=== PATIENT | female | born 1945 | race Caucasian/White ===

== ENCOUNTER → 2023-12-19 11:00 | Outpatient (REF) | payer MEDICARE, SELFPAY ==
[2023-12-19 11:39] LABS: % Basophils 0.5 % (0-2); % Eosinophils 1.9 % (0-6); % Immature Granulocytes 0.5 % (0-0.5); % Lymphocytes 38.6 % (20.5-51.1); % Monocytes 7.7 % (1.7-9.3); % Neutrophils 50.8 % (42.2-75.2); Absolute Eosinophils 0.1 10^3/uL (0-0.7); Absolute Lymphocytes 1.6 10^3/uL (1.2-3.4); Absolute Monocytes 0.3 10^3/uL (0.1-0.6); Absolute Neutrophils 2.1 10^3/uL (1.4-6.5); Hematocrit 40.2 % (37.0-47.0); Hemoglobin 13.5 g/dL (12.0-16.0); Mean Corp Hgb Conc. 33.6 g/dL (33.0-37.0); Mean Corpuscular Hgb 32.5 pg (27.0-31.0); Mean Corpuscular Volume 96.9 fL (81.0-99.0); Mean Platelet Volume 9.4 fL (7.4-10.4); Nucleated Red Blood Cells % 0 %; Platelet Count 200 10^3/uL (130-400); Red Blood Cell Count 4.15 10^6/uL (4.20-5.40); Red Cell Dist. Width 12.5 % (11.5-14.5); White Blood Cell Count 4.2 10^3/uL (4.8-10.8)
[2023-12-19 12:52] LABS: ALT (SGPT) 30 U/L (0-35); AST (SGOT) 34 U/L (14-36); Albumin 4.5 g/dl (3.5-5.0); Alkaline Phosphatase 91 U/L (38-126); Blood Urea Nitrogen 18 mg/dl (7-17); Carbon Dioxide 27 mmol/L (22-30); Chloride 105 mmol/L (98-107); Glucose 91 mg/dl (70-99); HDL Cholesterol 66 mg/dl; LDL Cholesterol, Calculated 84 mg/dl; Potassium 4.5 mmol/L (3.5-5.1); Sodium 141 mmol/L (135-145); Total Bilirubin 0.6 mg/dl (0.2-1.3); Total Cholesterol 178 mg/dl (50-199); Triglyceride 141 mg/dl (10-149); Very Low Density Lipoprotein 28 mg/dl (0-30); eGFR > 60.00
[2023-12-19 13:23] LABS: TSH 1.75 uIU/ml (0.47-4.68)
== END ==
LOC: REG 11:00
PROVIDERS: ATTENDING PHYSICIAN Family Medicine
DX: H00.015 Hordeolum externum left lower eyelid (principal); K21.9 Gastro-esophageal reflux disease without esophagitis; E78.00 Pure hypercholesterolemia, unspecified; G60.8 Other hereditary and idiopathic neuropathies; R03.0 Elevated blood-pressure reading, without diagnosis of hypertension
CPT/HCPCS: 36415; 80053; 80061; 84443; 85025

== ENCOUNTER → 2024-01-31 09:00 | Outpatient (REF) | payer MEDICARE, SELFPAY | LOC: DHSLP 09:00 | PROVIDERS: ATTENDING PHYSICIAN Family Medicine | DX: G47.33 Obstructive sleep apnea (adult) (pediatric) (principal) | CPT/HCPCS: 95800 ==

== ENCOUNTER → 2024-07-31 11:49 | Outpatient (REF) | payer MEDICARE, SELFPAY | LOC: RAD 11:49 | PROVIDERS: ATTENDING PHYSICIAN Family Medicine | DX: M54.10 Radiculopathy, site unspecified (principal) | CPT/HCPCS: 72110; 72220 ==

== ENCOUNTER 2024-09-16 06:18 | Day surgery (SDC) | payer MEDICARE, SELFPAY | END 2024-09-16 09:52 | disposition home or self-care (01) | LOC: GI 06:18 | PROVIDERS: ATTENDING PHYSICIAN Surgery; FAMILY PHYSICIAN Family Medicine | DX: Z12.11 Encounter for screening for malignant neoplasm of colon (principal); R19.5 Other fecal abnormalities; K57.30 Diverticulosis of large intestine without perforation or abscess without bleeding; K64.9 Unspecified hemorrhoids; D12.0 Benign neoplasm of cecum; K63.5 Polyp of colon; D12.2 Benign neoplasm of ascending colon; Z83.719 Family history of colon polyps, unspecified | CPT/HCPCS: 45380; 88305 ==

== ENCOUNTER 2024-11-05 06:09 | Day surgery (SDC) | payer MEDICARE, SELFPAY ==
[2024-11-05 09:16] VITALS: BMI 26.6
[2024-11-05 09:25] VITALS: BP 143/86
[2024-11-05 09:31] VITALS: BMI 26.6
[2024-11-05 12:42] VITALS: BP 108/63
[2024-11-05 12:45] VITALS: BP 98/61
[2024-11-05 13:00] VITALS: BP 136/94
[2024-11-05 13:08] VITALS: BP 136/79
== END 2024-11-05 13:15 | disposition home or self-care (01) ==
LOC: GI 06:09
PROVIDERS: ATTENDING PHYSICIAN Internal Medicine Gastroenterology
DX: K64.0 First degree hemorrhoids (principal); K64.4 Residual hemorrhoidal skin tags; D12.0 Benign neoplasm of cecum; D12.2 Benign neoplasm of ascending colon; D12.3 Benign neoplasm of transverse colon
CPT/HCPCS: 45390; 45385; 88305

== ENCOUNTER 2025-01-13 09:01 | Emergency (ER) | payer MEDICARE, SELFPAY ==
[2025-01-13] VITALS (11 sets, daily range): BP systolic 114–149; BP diastolic 57–90; BMI 28.6
--- NOTE | 2025-01-13 10:00 | ED.GENMED ---
History of Present Illness
General
Chief Complaint: Chest Pain
Source: patient
Exam Limitations: none
Time Seen by Provider: 01/13/25 09:51
Nursing documentation reviewed up to this point in time: agreed with
History of Present Illness
History of Present Illness:
Patient presents to ED secondary to intermittent chest pain since yesterday, which has become persistent since early this morning around 3 AM, when she woke up from sleep. Chest pain described as dull, achy, nonradiating, without any alleviating or
exacerbating factors. Denies direct trauma. Denies recent illness. Denies back pain. Denies leg pain or swelling. Denies recent medication or diet changes. However, patient does report [place]. There is a family
history of heart disease. There is no family history of blood clots. Patient states that her sharp pain is reminiscent of 2009, when she was diagnosed with breast cancer, which currently is in remission. Patient is currently being followed at [facility].
Past History
Past History
ED Past Medical History: Cancer (Breast CA), Hypercholesterolemia and Other (Ambulatory dysfunction, Migraines, )
ED Past Surgical History: Cholecystectomy, Orthopedic (Torn meniscus with repair, Right total knee replacement) and Other (Lumpectomy left breast, Jose cataracts)
Social History
Tobacco: Non-smoker
Alcohol: None
Drug: None
Personal:
Living: alone
Review of Systems
Review of Systems
Allergies reviewed?: Yes
All Other Systems: ROS reviewed and negative except as documented in HPI and ROS
Constitutional: Reports no symptoms
Respiratory: Denies trouble breathing
Cardiac: Reports chest pain
ABD/GI: Reports no symptoms
Musculoskeletal: Reports no symptoms
Skin: Reports no symptoms
Neurological: Reports no symptoms
Phy Exam
Physical Exam
Physical Exam:
Physical Exam
General: no apparent distress, not acutely ill. afebrile
Head: nc/at. eomi
Neck: supple. no meningeal signs.
Heart: s1/s2 regular rate and rhythm
Lungs: no acute respiratory distress. clear bilaterally. mild left upper chestwall tenderness to palpation
Abdomen: normal bowel sounds. not tender.
Neuro: alert and oriented x 3. no focal neurological deficits
Skin: no rash
Psychiatric: well kept. interactive and cooperative
Extremities: no edema. no calf tenderness
Scores
Heart Score for Chest Pain Patients
STEMI patient?: No
History: Slightly or Non-Suspicious
ECG: Normal
Age: >/= 65 years
Risk Factors: 1 or 2 Risk Factors
Troponin: </= Normal Limit
Heart Score for Chest Pain Patients: 3
Heart Score Risk: 2.5% MACE over next 6 weeks
Course
Orders/Labs/Results
Orders:
Orders
01/13/25 09:01
EKG [Electrocardiogram (*1)] Urgent
Reason for Study: Chest Pain
EKG- Treatment ONCE
01/13/25 09:53
Ketorolac [Toradol] 15 mg IV NOW STA
Pantoprazole [Protonix IV] 40 mg IV NOW STA
Test Result ONCE
CR Chest - 2 Views Urgent
Comment:
Reason For Exam: chest pain
01/13/25 09:57
0.9% Sodium Chloride 500 ml [Nss] 500 ml IV BOLUS
01/13/25 10:05
Complete Blood Count/No Diff Urgent
Comprehensive Metabolic Panel Urgent
Magnesium Urgent
Troponin I Urgent
01/13/25 10:07
D-Dimer Stat
01/13/25 10:10
Ketorolac [Toradol] 15 mg IV NOW STA
01/13/25 11:52
EKG- Treatment ONCE
01/13/25 13:00
Electrocardiogram (*1) Urgent
Reason for Study: Chest Pain
01/13/25 13:02
Troponin I Urgent
Abnormal Lab Results
01/13/25
10:05
WBC 4.2 L 10^3/uL
(4.8-10.8)
RBC 3.91 L 10^6/uL
(4.20-5.40)
MCH 32.2 H pg
(27.0-31.0)
Chloride 108 H mmol/L
(98-107)
BUN 22 H mg/dl
(7-17)
01/13/25 10:05
01/13/25 10:05
Vital Signs
Initial and Last Documented VS:
Initial Vital Signs
Temp Pulse Resp BP Pulse Ox
98.2 F 84 20 149/90 100
01/13/25 09:12 01/13/25 09:12 01/13/25 09:12 01/13/25 09:12 01/13/25 09:12
Last Documented Vital Signs
Temp Pulse Resp BP Pulse Ox
97.9 F 68 20 114/81 98
01/13/25 14:50 01/13/25 14:50 01/13/25 14:50 01/13/25 14:50 01/13/25 14:50
MDM/Problems Addressed
MDM/Problems Addressed:
Patient with an unremarkable workup in ED, including blood work, EKG, and chest x-ray. D-dimer and repeat troponin also within normal limits. History and exam less likely ACS, but with reproducible chest pain as well as previous similar pain
secondary to malignancy, other etiology certainly is more possible. As such, patient will be discharged home at this time, with recommendation to follow-up with her primary care physician as well as oncologist for reevaluation, including potential
consultation with cardiology as an outpatient. Return precautions provided. Patient expresses understanding at time of discharge, and agrees with treatment plan.
*Pulse Oximetry
SaO2: 100
Oxygen Mode of Delivery: Room air
Patient hypoxic: no
*EKG
Interpreted by ED Provider?: Yes
EKG Intrepretation Date: 01/13/25
Heart Rate: 66
Rate: normal
Rhythm: sinus and PAC's
[place]: normal axis
Interval: normal interval
*Critical Care Note
Total Time (30-74mins, 75-104mins- exclusive of procedures): Not Applicable
ED Attending Note
-
Portions of this chart may have been created with voice recognition software.� Occasional wrong word or��sound alike� substitutions may have occurred due to the inherent limitations of voice recognition software.
Discharge Plan
Departure
Patient Disposition: Home (Routine Discharge)
Date of Disposition: 01/13/25
Time of Disposition: 14:42
Patient with high blood pressure during this ER visit?: Yes
Condition: Good
Discharge Problem:
Chest pain
Instructions: Chest Pain PCP Follow Up
Prescriptions:
No Action
calcium carbonate-vitamin D3 1 EACH tablet
2 tab PO DAILY
B-Complex Tablet 1 TAB Tab
1 tab PO DAILY
Centrum Silver 1 EACH tablet
1 ea PO DAILY
L.acidoph,paracasei,B.animalis 1 EACH capsule
1 ea PO DAILY
Glucosamine Chondroitin
2 tab PO DAILY
rosuvastatin
5 mg PO DAILY
vitamin Q84-alpxood B1
1 tab PO DAILY
Referrals:
Jf Zuniga MD [Family Provider, Family Practice]
Activity Restrictions/Additional Instructions:
As discussed, please follow-up with your primary care physician and oncologist for reevaluation, including potential outpatient consultation with manager book. Please return to ED with worsening symptoms.
Interventions
Interventions:
*Risk Screen - Suicide Last Done: 01/13/25 09:12
*General Assessment Last Done: 01/13/25 09:12
*Neglect/Abuse Screening Last Done: 01/13/25 09:12
*ED- Fall Risk Assessment Last Done: 01/13/25 10:29
*ED COVID-19 Vaccine History Last Done: 01/13/25 10:29
ED- Cardiac Assessment Last Done: 01/13/25 10:14
Discharge Date and Time
Print Language: WOLOF
[2025-01-13] MEDS: TORADOL 15 MG IV (10:17)
[2025-01-13 10:22] LABS: Hematocrit 37.3 % (37.0-47.0); Hemoglobin 12.6 g/dL (12.0-16.0); Mean Corp Hgb Conc. 33.8 g/dL (33.0-37.0); Mean Corpuscular Volume 95.4 fL (81.0-99.0); Platelet Count 194 10^3/uL (130-400); Red Cell Dist. Width 12.5 % (11.5-14.5)
[2025-01-13 10:33] LABS: ALT (SGPT) 25 U/L (0-35); AST (SGOT) 27 U/L (14-36); Albumin 4.4 g/dl (3.5-5.0); Alkaline Phosphatase 74 U/L (38-126); Blood Urea Nitrogen 22 mg/dl (7-17); Calcium 9.5 mg/dl (8.4-10.2); Carbon Dioxide 23 mmol/L (22-30); Chloride 108 mmol/L (98-107); Estimated Creatinine Clearance 60 ml/min; Glucose 93 mg/dl (70-99); Magnesium 2.0 mg/dl (1.6-2.3); Potassium 4.3 mmol/L (3.5-5.1); Sodium 139 mmol/L (135-145); Total Protein 6.6 g/dl (6.3-8.2); eGFR > 60.00
[2025-01-13 10:41] LABS: Troponin I < 0.012 ng/ml
[2025-01-13 10:56] LABS: D-Dimer < 0.27 ug/mlFEU (0.00-0.50)
[2025-01-13 13:55] LABS: Troponin I < 0.012 ng/ml
== END 2025-01-13 15:11 | disposition home or self-care (01) ==
LOC: EMR 09:01
PROVIDERS: EMERGENCY PHYSICIAN Emergency Medicine; FAMILY PHYSICIAN Family Medicine
DX: R07.89 Other chest pain (principal); E78.00 Pure hypercholesterolemia, unspecified; Z82.49 Family history of ischemic heart disease and other diseases of the circulatory system; Z85.3 Personal history of malignant neoplasm of breast; Z90.49 Acquired absence of other specified parts of digestive tract
CPT/HCPCS: 99283; 96374; 71046; 80053; 83735; 84484; 85027; 85379; 93005

== ENCOUNTER 2025-05-12 06:18 | Day surgery (SDC) | payer MEDICARE, SELFPAY | END 2025-05-12 09:33 | disposition home or self-care (01) | LOC: GI 06:18 | PROVIDERS: ATTENDING PHYSICIAN Surgery | DX: Z12.11 Encounter for screening for malignant neoplasm of colon (principal); Z86.0100 Personal history of colon polyps, unspecified; K57.30 Diverticulosis of large intestine without perforation or abscess without bleeding | CPT/HCPCS: G0105 ==